=== PATIENT | male | born 1970 | race Caucasian/White ===

== ENCOUNTER 2024-09-11 08:45 | Outpatient (AMB) | payer OTHER, SELFPAY ==
--- NOTE | 2024-09-11 09:55 | MHC.OFFWIV ---
Intake Vital Signs 09/11/24 09:56 Height 6 ft Weight 235 lb BMI 31.9 BP 130/84 Blood Pressure Location Rt brachial Position Sitting Pulse 74 Pulse Source Pulse Oximeter Pulse Oximetry (%) 98 Oxygen Delivery Method Room Air Intake Visit Reasons: [employer]-chest xry work clearance Allergies No Known Allergies Allergy (Unverified 09/11/24 09:56) Do you need a note to return to daycare/school/sports/work: No HPI HPI Comments History of Present Illness Details Patient is a 54-year-old male requesting a chest x-ray. He tells me he received the BCG vaccine while he was a child living in the [place] so he will test positive on T spot. He is seeking employment with a new employer and they are requesting he got a chest x-ray. Review of Systems Const All systems reviewed & are unremarkable except as noted in HPI and below Physical Exam Vital Signs: Last Vital Signs Pulse 74 09/11/24 09:56 BP 130/84 09/11/24 09:56 Pulse Ox 98 09/11/24 09:56 Oxygen Delivery Method Room Air 09/11/24 09:56 BMI result Body Mass Index 31.9 Const General: cooperative, healthy appearing, comfortable, no acute distress and well developed Orientation/consciousness: patient oriented x3 Limitations: no limitations HEENT Head: Yes normal to inspection Ears: hearing grossly normal bilaterally General nose exam: Normal external nose present Face and sinus: Yes normal facial exam Eyes General: appearance normal, both eyes and all related structures Neck Neck: Yes normal visual inspection and Yes full ROM Resp Effort & Inspection: normal respiratory effort and able to speak in complete sentences Skin General skin exam: no rashes or lesions noted Neuro General: patient oriented x3 Extrem General: Yes normal to inspection Assessment & Plan Assessment & Plan (1) Normal screening chest x-ray for tuberculosis: Code(s): Z11.1 - Encounter for screening for respiratory tuberculosis Plan: Patient requires this for new employment Plan See above Orders: Orders XR chest 2V Today R05.9 - Cough, unspecified Coding Level of Care Code Est Pt Level 3 (37295) Diagnoses Normal screening chest x-ray for tuberculosis Z11.1
[2024-09-11 09:56] VITALS: BP 130/84; PULSE 74; O2SAT 98; BMI 31.9
== END 2024-09-11 10:45 | disposition home or self-care (01) ==
PROVIDERS: PCP Internal Medicine; Visit Provider Physician Assistant
DX: Z11.1 Encounter for screening for respiratory tuberculosis (principal)

== ENCOUNTER → 2024-09-11 08:45 | Outpatient (BNVA) | payer OTHER, SELFPAY | PROVIDERS: PCP Internal Medicine; Visit Provider Physician Assistant ==

== ENCOUNTER 2024-09-11 10:15 | Outpatient (REF) | payer OTHER, SELFPAY ==
--- NOTE | ~2024-09-11 | XR_ITS ---
EXAMINATION: XR CHEST CLINICAL INFORMATION: Cough. COMPARISON: Most recent chest radiograph dated 12/01/2006. TECHNIQUE: 2 views of the chest were obtained. FINDINGS: The lungs are clear. The cardiomediastinal silhouette is normal in size. There is no pleural effusion or pneumothorax. No acute osseous abnormality. XR/XR chest 2V IMPRESSION: No acute cardiopulmonary findings. Electronically signed by: Alessandro Marcelo MD 09/11/2024 12:56 PM [facility]
== END 2024-09-11 10:16 | disposition home or self-care (01) ==
LOC: HO.HMGCX 10:15
PROVIDERS: Visit Provider Physician Assistant
DX: R05.9 Cough, unspecified (principal)
CPT/HCPCS: 71046

== ENCOUNTER 2025-06-26 17:16 | Emergency (ER) | payer OTHER, SELFPAY ==
--- NOTE | ~2025-06-26 | XR_ITS ---
CLINICAL HISTORY: pain, crush injury 3 view right hand Comparison: None provided Findings: No fractures or dislocations. Mild arthritic changes in the interphalangeal joints. No erosions. No radiopaque foreign body. IMPRESSION: No acute fracture or dislocation. This document has been electronically signed by: Mariela Elmore DO on 06/26/2025 18:46:52
[2025-06-26 17:51] VITALS: BP 192/87; PULSE 68; RESP 18; TEMP 36.7; O2SAT 99; BMI 28.0
--- NOTE | 2025-06-26 17:51 | ED.UPPEXIN ---
HPI - Extremity Injury (Upper) General Chief Complaint: Extremity Injury, Upper Stated Complaint: Rt hand injury Time Seen by Provider: 06/26/25 18:51 Source: patient Mode of arrival: ambulatory Limitations: no limitations History of Present Illness ED Provider: Neil MITCHELL HPI narrative: The patient is a 55-year-old male presenting to the ED reporting he was at work today when a hospital bed collapsed onto his right hand. Patient reports suffering a crush injury with lacerations to the proximal aspect of the dorsum of the right hand as well as the right thumb. Patient was sent to urgent care where the lacerations were wrapped and patient was sent to the ED for management. The patient reports painful range of motion but denies any impaired range of motion or distal paresthesias, denies pain or painful range of motion of the wrist. The patient does not know the date of his last Tdap. Patient denies other injury or complaint. Related Data Home Medications ?Medication ?Instructions ?Recorded ?Confirmed No Known Home Meds 09/11/24 09/11/24 Allergies Allergy/AdvReac Type Severity Reaction Status Date / Time No Known Allergies Allergy Verified 06/26/25 17:55 Review of Systems Review of Systems: Yes all other systems are reviewed and are negative PMFSH Social History Social History Advance Directives: No Advance Directives Information Provided: Yes Do you have a plan to hurt others: No Plan Physical Exam Vital Signs: Vital Signs: Last Vital Signs Temp 97.4 F 06/26/25 19:33 Pulse 69 06/26/25 19:33 Resp 18 06/26/25 19:33 BP 165/89 H 06/26/25 19:33 Pulse Ox 99 06/26/25 19:33 O2 Del Method Room Air 06/26/25 19:33 BMI result Body Mass Index 28.0 CONSTITUTIONAL: The patient appears non-toxic, well nourished and in no acute distress. Vital signs as documented. HEAD: Atraumatic, normocephalic. EYES: EOMs grossly intact, pupils equal, conjunctiva clear, no exudate. ENT: Nares patent, no discharge. Airway patent, no audible stridor, visible mucosa is pink and moist without noted lesions. NECK: trachea is midline, no obvious masses or gross abnormalities. CHEST: Symmetric movement, normal appearance. LUNGS: Non-labored work of breathing. CARDIAC: No evidence of hypoperfusion. ABDOMEN: Nondistended, no obvious injury. : Deferred. EXTREMITIES: There is a 3 cm linear laceration noted to the proximal aspect of the dorsum of the right hand, and a irregular laceration versus avulsion with multiple skin flaps noted to the ulnar aspect of the IP and distal phalanx of the right thumb, without involvement of the nail, no subungual hematoma or cuticle irregularity. No impaired range of motion, no crepitus, no bony tenderness. Distal CSM is intact throughout, there is no tenderness, painful range of motion or impaired range of motion of the wrist, no snuffbox tenderness. Moves all other extremities spontaneously without reported pain. No other obvious injury or deformity noted. NEURO: Alert and oriented x3, CN II-XII appear grossly intact. Cerebellar Functioning grossly intact. Speech clear and appropriate. SKIN: Warm, dry, color appropriate. No rashes or lesions noted. Course Course Course Narrative: This is an RME: Additional HPI, ROS, PE not included below will be deferred to primary provider. RME assessment and note performed by: Swathi Zendejas PA-C This is a [id number], with no known medical problems, who presents to the ER with concerns of right hand crushing injury. Reports that his right hand was crushed under a bed. Reports he was at work and a bed collapsed on his head. Reports there is a wound, not visualized in triage as it is wrapped extensively. Pt right hand dominant. Plan: xray, further er eval needed Medications Administered Discontinued Medications Generic Name Dose Route Start Last Admin Trade Name Freq PRN Reason Stop Dose Admin Diphtheria/Tetanus/Acell Pertussis 0.5 ml 06/26/25 18:53 06/26/25 18:57 Diphth,Pertus(Acell),Tet Adult 0.5 Ml Syringe IM 06/26/25 18:54 0.5 ml .ONCE ONE Administration Ibuprofen 600 mg 06/26/25 18:53 06/26/25 19:17 Ibuprofen 600 Mg Tablet PO 06/26/25 18:54 600 mg ONCE ONE Administration Lidocaine HCl 10 ml 06/26/25 18:53 06/26/25 18:57 Lidocaine Hcl 1 % 20 Ml Vial INFILTRATI 06/26/25 18:54 10 ml ONCE ONE Administration Medical Decision Making Medical Decision Making MDM Narrative: 7:27 PM 06/26/2025 (Chichi MITCHELL): The patient is a 55-year-old male presenting to the ED for evaluation of a crush injury to the right hand with laceration to the dorsum of the hand and the ulnar aspect of the right thumb. Patient's exam reveals no impaired range of motion, no crepitus, no bony tenderness. There is a 3 cm linear laceration noted to the proximal aspect of the dorsum of the right hand, and a irregular laceration versus avulsion with multiple skin flaps noted to the ulnar aspect of the IP and distal phalanx of the right thumb, without involvement of the nail, no subungual hematoma or cuticle irregularity. Distal CSM is intact throughout, there was no painful range of motion or impaired range of motion of the wrist, no bony tenderness, no snuffbox tenderness. The patient's x-ray shows no evidence of acute fracture or foreign body. Patient's lacerations were repaired without complication. Tdap was updated. Patient will be discharged with outpatient follow up and instructions regarding reasons to return. Admission/Observation Consideration of admission/observation: Escalation of care including admission/observation considered Radiology Impression Discussion of test interpretation with radiology: I have reviewed the radiologist's reading. Radiologist Impression: CLINICAL HISTORY: pain, crush injury 3 view right hand Comparison: None provided Findings: No fractures or dislocations. Mild arthritic changes in the interphalangeal joints. No erosions. No radiopaque foreign body. IMPRESSION: No acute fracture or dislocation. This document has been electronically signed by: Mariela Elmore DO on 06/26/2025 18:46:52 Prescription Management I considered prescription management with: Pain Medication and Antibiotic Procedures Laceration Laceration 1: Site: hand Side (If applicable): right Size (cm): 3 Description: linear and clean Depth: simple, single layer Local Anesthetic: lidocaine 1% Amount of anesthesia used (mL): 5 Pre-repair: wound explored and deep structures intact Skin layer closed with: nylon Size (cm): 4-0 Number of sutures: 5 Technique: simple, interrupted Laceration 2: Site: hand Side (If applicable): right (Thumb) Size (cm): 2 Description: stellate, flap, irregular and other (Does not involve cuticle or nail) Depth: simple, single layer Local Anesthetic: lidocaine 1% (Digital Block) Amount of anesthesia used (mL): 5 Pre-repair: wound explored Skin layer closed with: nylon Size (cm): 4-0 Number of sutures: 3 Technique: simple, interrupted Discharge Plan Discharge Clinical Impression: Crush injury of hand Qualifiers: Encounter type: initial encounter Laterality: right Qualified Code(s): S67.21XA - Crushing injury of right hand, initial encounter Laceration of hand Qualifiers: Encounter type: initial encounter Foreign body presence: without foreign body Laterality: right Qualified Code(s): S61.411A - Laceration without foreign body of right hand, initial encounter Laceration of thumb without damage to nail Qualifiers: Encounter type: initial encounter Foreign body presence: without foreign body Laterality: right Qualified Code(s): S61.011A - Laceration without foreign body of right thumb without damage to nail, initial encounter Patient Disposition: Home, Self-Care Instructions: Laceration (ED), Finger Laceration (ED), Crush Injury (ED) Additional Instructions: Thank you for choosing [facility] Emergency Department for your care today. Thankfully your x-ray today shows no evidence of a fracture as a result of your crush injury of your hand. You may experience varying stages of bruising over the next few days to weeks, please apply ice as needed to reduce swelling and pain. Your lacerations today appear uncomplicated. The lacerations were repaired with nonabsorbable sutures which will need to be removed in 5-7 days. Please return to the emergency department or follow-up with your primary care provider for removal of sutures. Please apply bacitracin and a clean dry dressing to the lacerations twice daily for the first 2-3 days. Then please keep the areas clean and dry, but uncovered and exposed to the air to allow the laceration to heal. While it is perfectly acceptable to allow water to run over the sutures while showering, please do not swim, or submerge the laceration in standing water until the sutures are removed. You may take alternating (staggered) doses of ibuprofen 600mg and Tylenol 1000mg every 4 hours as needed for any additional pain. Please rest the injured areas, and apply ice for 20 minutes every hour. Please stay well hydrated and get plenty of rest. If you do not have a primary care physician, please call the [facility] at [phone] to establish a new primary care physician. While waiting to establish your new primary care physician, you can call our [facility] at [phone] for non-emergency needs. Please return to the emergency department if you develop any uncontrollable bleeding, re-opening of your wound, redness advancing >1-2 cm away from your wound, or white milky discharge from your wound. Please also return if you experience any other new or worsening symptoms or concerns. Prescriptions: No Action No Known Home Meds Referrals: Physician,None [Primary Care Provider, Medical] Clinical Impression: Crush injury of hand Stand Alone Forms: Work/School Release Interventions: ED Discharge Assessment Last Done: 06/26/25 19:33 Discharge Date/Time: 06/26/25 19:34 Print Language: Hungarian
[2025-06-26] MEDS: Diphth,Pertus(ACell),Tet Adult 0.5 ML SYRINGE IM (18:57)
[2025-06-26] MEDS: Lidocaine HCl 1 % 20 ML VIAL 10 ML INFILTRATI (18:57)
--- NOTE | 2025-06-26 19:04 | PC.NURSE ---
pt medicated per LISHA- Thuy updated
[2025-06-26 19:24] VITALS: BP 165/89; PULSE 69; RESP 18; TEMP 36.3; O2SAT 99
[2025-06-26 19:33] VITALS: BP 165/89; PULSE 69; RESP 18; TEMP 36.3; O2SAT 99
== END 2025-06-26 19:34 | disposition home or self-care (01) ==
PROVIDERS: Emergency Provider Student in an Organized Health Care Education/Training Program
DX: S67.21XA Crushing injury of right hand, initial encounter (principal); S61.011A Laceration without foreign body of right thumb without damage to nail, initial encounter; S61.411A Laceration without foreign body of right hand, initial encounter; W23.0XXA Caught, crushed, jammed, or pinched between moving objects, initial encounter; Y93.9 Activity, unspecified; Y92.239 Unspecified place in hospital as the place of occurrence of the external cause; Y99.0 Civilian activity done for income or pay; Z23 Encounter for immunization
CPT/HCPCS: 12002; 73130; 90471; 90715; 99283; 99284; J2003

== ENCOUNTER → 2025-06-26 17:52 | Outpatient (BNV) | payer OTHER, SELFPAY | PROVIDERS: Emergency Provider Student in an Organized Health Care Education/Training Program; Visit Provider Radiology Diagnostic Radiology | DX: M19.041 Primary osteoarthritis, right hand (principal) | CPT/HCPCS: 73130 ==